=== PATIENT | female | born 1985 | race Caucasian/White ===

== ENCOUNTER → 2018-04-25 | Outpatient (CLI) | payer MEDICAID ==
--- NOTE | 2018-04-25 11:10 | US ---
EXAMINATION TYPE: US OB TV Cervical Measurement DATE OF EXAM: 04/25/2018 COMPARISON: NONE REASON FOR EXAM: Per Ordering Physician?this transvaginal scan is to assess for placenta previa - sahu ited OB exam per order GESTATIONAL AGE / DATING Physician Established: (29 weeks/1 days) EDC: 07/10/18 MATERNAL/ SURVEY CERVICAL LENGTH (transvaginal: norm> 2.5cm): 4.3 cm Ultrasound evidence of shortened cervix? no No evidence of placenta previa at this time. Placenta appears 3.2cm from the cervix at this time HEART RATE: 133 bpm RHYTHM: Normal IMPRESSION: 1. No placenta previa. 2. Single intrauterine gestation wording 29 weeks 1 day based on physician established EDC. Cardiac a ctivity measuring 33 bpm.
== END ==
LOC: RADUSWWP 10:06
PROVIDERS: ATTEND Obstetrics & Gynecology
DX: O44.03 Complete placenta previa NOS or without hemorrhage, third trimester (principal); Z3A.29 29 weeks gestation of pregnancy
CPT/HCPCS: 76817

== ENCOUNTER → 2021-04-03 | Outpatient (CLI) | payer MEDICAID ==
--- NOTE | 2021-04-03 09:57 | USB ---
Reason for exam: clinical finding. History: Benign excisional biopsy of the right breast, 2016. Indicated problem(s): lump or thickening in the right breast. Physical Findings: Nurse Summary: Patient complains of right breast lump x 3 months (nurse mj). US Breast RT Technologist: Laura Zaragoza Right complete breast ultrasound includes all four quadrants, the retroareolar region and axilla. Finding demonstrates no cystic or solid lesion seen. These results were verbally communicated with the patient and result sheet given to the patient on 04/03/21. ASSESSMENT: Negative, BI-RAD 1 RECOMMENDATION: Routine screening mammogram of both breasts at age 42. Manage patient on a clinical basis.
== END | disposition home or self-care (01) ==
LOC: RADUSWWP 08:53
PROVIDERS: ATTEND Obstetrics & Gynecology
DX: N64.89 Other specified disorders of breast (principal)

== ENCOUNTER → 2024-02-27 | Outpatient (CLI) | payer MEDICAID ==
--- NOTE | 2024-02-27 17:30 | MR ---
EXAMINATION TYPE: MR ankle RT wo con DATE OF EXAM: 02/27/2024 COMPARISON: Outside radiograph 02/21/2024 HISTORY: 38-year-old female Rt ankle pain, sports injury, casted TECHNIQUE: Multiplanar, multisequence images of the right ankle were obtained without IV contrast. FINDINGS: No acute or healing fracture. No suspicious bone marrow replacement. No tibiotalar joint effusion. Mild thickening of the Achilles tendon with some inhomogeneous signal along the distal third portion. There is also a small to moderate-sized effusion in the retrocalcaneal bursa. Tiny plantar heel spur. Some mild edema overlying the origin of the plantar fascia without any signif icant abnormal thickening. Os peroneum without any abnormal edema. The syndesmosis appears intact as does the anterior extensor tendons. The lateral peroneal tendons appear intact. The ATFL and CFL appears intact. There is a multilocular ganglion cyst measuring 3.1 x 0.9 cm along the posterior ankle, possibly arising from the fibular at tachment of the PTFL where there may be a small partial tear. Soft tissue edema along the anteromedial aspect of the ankle in the expected location of the anterior deltoid ligament fibers and navicular attachment of the superomedial ligament. Mild tenosynovial flu id along the malleolar and inframalleolar posterior tibial tendon. The lateral flexor tendons otherwi se appear intact. Some edema within the sinus tarsi. No fatty signal replacement. IMPRESSION: 1. No acute or healing fracture. 2. Multilocular ganglion cyst measuring 3.1 x 0.9 cm along the posterior ankle, possibly arising from the fibular attachment of the PTFL where there may be a small partial tear. 3. Mild insertional Achilles tendinosis. There is a small to moderate-sized retrocalcaneal bursal eff usion/bursitis. 4. Soft tissue swelling anteromedial aspect of the ankle. Correlate for grade 1 or grade 2 sprain inv olving the anterior deltoid ligament fibers and superomedial ligament of the spring ligament complex. 5. Some edema within the sinus tarsi could reflect a mild subtalar joint sprain. 6. Soft tissue edema overlying the origin of the plantar fashion along with a small heel spur. Correl ate for any potential symptoms of plantar fasciitis.
== END | disposition home or self-care (01) ==
LOC: RADMRIMAIN 08:08
PROVIDERS: ATTEND Orthopaedic Surgery
DX: M67.471 Ganglion, right ankle and foot (principal); S86.021A Laceration of right Achilles tendon, initial encounter; M79.89 Other specified soft tissue disorders; M77.31 Calcaneal spur, right foot; X58.XXXA Exposure to other specified factors, initial encounter

== ENCOUNTER → 2025-02-25 | Outpatient (CLI) | payer MEDICAID ==
--- NOTE | 2025-02-25 11:51 | MM ---
Reason for Exam: Additional evaluation requested from abnormal screening. Patient History: 2016, Benign Excisional Biopsy on the right side. Risk Values: Genesis 5 year model risk: 0.4%. NCI Lifetime model risk: 8.3%. Tissue Density: The breasts are extremely dense, which lowers the sensitivity of mammography. Findings: Analyzed By CAD. No dominant mass or architectural distortion. No abnormality seen over the marked area of palpable abnormality. Breast tissue is markedly dense which limits sensitivity of mammography. Overall Assessment: Incomplete: need additional imaging evaluation, BI-RAD 0 Management: Diagnostic Breast Ultrasound of the left breast. . Results were given to the patient verbally at the time of exam. Patient should continue monthly self-breast exams. A clinical breast exam by your physician is recommended on an annual basis. This exam should not preclude additional follow-up of suspicious palpable abnormalities. Note on Genesis scores and lifetime risk: 1. A Genesis score greater than 3% is considered moderate risk. If this is the case, consider specialist referral to assess eligibility for a risk reducing agent. 2. If overall lifetime risk for the development of breast cancer is 20% or higher, the patient may qualify for future screening with alternating mammogram and breast MRI. [facility], , 02/25/2025 11:49 AM. Electronically signed and approved by: yDlon Peña M.D. Radiologis
--- NOTE | 2025-02-25 12:13 | USB ---
Reason for Exam: Clinical finding. Patient History: 2016, Benign Excisional Biopsy on the right side. Risk Values: Genesis 5 year model risk: 0.4%. NCI Lifetime model risk: 8.3%. Technique: Method: Targeted. Findings: The area of palpable concern of the left breast, the axilla of the left breast and the retroareolar of the left breast were scanned. Ultrasound was performed of the palpable abnormality at the 6:00 position left breast, axilla and retro-areolar region were reviewed. No solid or cystic masses are identified.. Overall Assessment: Probably benign, BI-RAD 3 Management: Diagnostic Mammogram of the left breast in 6 months. A clinical breast exam by your physician is recommended on an annual basis and results should be correlated with mammographic findings. This exam should not preclude additional follow-up of suspicious palpable abnormalities. Results were given to the patient verbally at the time of exam. [facility], , 02/25/2025 12:10 PM. Electronically signed and approved by: Dylon Peña M.D. Radiologis
== END | disposition home or self-care (01) ==
LOC: RADMAMWWP 11:20
PROVIDERS: ATTEND Obstetrics & Gynecology
DX: R92.342 Mammographic extreme density, left breast (principal); N63.20 Unspecified lump in the left breast, unspecified quadrant; N64.4 Mastodynia
CPT/HCPCS: 77062; 77066